=== PATIENT | female | born 1980 | race Caucasian/White ===

== ENCOUNTER 2018-05-01 19:48 | Emergency (ER) | payer MEDICAID ==
[~2018-05-01] VITALS: Ht 172.7 cm; Wt 61.7 kg
--- NOTE | 2018-05-01 20:00 | NUR ---
PT BIBRA BECAUSE HER SISTER THOUGHT SHE WAS "ACTING WEIRD". SISTER STATES THAT SHE HAS BEEN ACTING SUICIDAL, AND SAYING SHE WANTS TO KILL HERSELF. PT DENIES SI/HI AT THIS MOMENT. PT RESPIRATIONS EVEN AND UNLABORED. PT PUT ON THE SAMPLE TESTER GRINDER AND PULSE OX.
--- NOTE | 2018-05-01 20:09 | NUR ---
SISTER. NISREEN: [phone]. CALL FOR QUESTION.
--- NOTE | 2018-05-01 22:00 | NUR ---
PT WANTING TO LEAVE, NON-COOPERATING WITH STAFF. PT STATING "I WANT MY PHONE AND I NEED TO GET OUT OF HERE"
[2018-05-01 22:28] LABS: APPEARANCE,URINE Clear (CLEAR); BILIRUBIN,URINE Negative (NEGATIVE); BLOOD, URINE Negative Ery/uL (NEGATIVE); COLOR,URINE Yellow (YELLOW); KETONES,URINE Trace (NEGATIVE); LEUKOCYTE ESTERASE ,URINE Negative (NEGATIVE); NITRITE, URINE Negative (NEGATIVE); PROTEIN,URINE Trace mg/dl (NEGATIVE); UGLUCOSE Negative (NEGATIVE); UROBILINOGEN,URINE 0.2 EU/dL (0.2)
[2018-05-01 22:30] LABS: BASOPHILS % (AUTO) 0.3 % (0.0-2.0); EOSINOPHILS % (AUTO) 3.1 % (0.0-6.0); HEMATOCRIT 45 % (33-45); HEMOGLOBIN 15.1 g/dL (11.5-14.8); LYMPHOCYTES % (AUTO) 8.2 % (20.0-44.0); MEAN CORPUSCULAR HGB CONC 34 g/dl (31.0-36.0); MEAN CORPUSCULAR VOLUME 94 fL (82-100); MONOCYTES # (AUTO) 0.8 /CMM (0.1-1.30); MONOCYTES % (AUTO) 6.5 % (2.0-12.0); NEUTROPHILS # (AUTO) 9.8 /CMM (1.8-8.9); NEUTROPHILS % (AUTO) 81.9 % (43.0-81.0); PLATELET COUNT (AUTO) 293 /CMM (150-450); RED BLOOD CELL COUNT(AUTO) 4.79 MIL/uL (4.0-5.2); WHITE BLOOD COUNT (AUTO) 11.9 K/uL (4.3-11.0)
--- NOTE | 2018-05-01 22:30 | NUR ---
Erma olivera in EDM - 05/01/18 at 2353 by YELITZA PT REFUSING BLOOD DRAW, AND URINE SAMPLE. JULIO NORMAN.
[2018-05-01 22:36] LABS: CALCIUM, SERUM 9.5 mg/dL (8.5-10.1); CARBON DIOXIDE 26 mmol/L (21-32); CHLORIDE 108 mmol/L (98-107); CREATININE 0.9 mg/dL (0.6-1.3); GLUCOSE 100 mg/dL (74-106); POTASSIUM 3.9 mmol/L (3.5-5.1); SODIUM SERUM 144 mmol/L (136-145); UREA NITROGEN, BLOOD 11 mg/dL (7-18)
[2018-05-01 22:43] LABS: ACETAMINOPHEN 0 ug/ml (10-30); ALANINE AMINOTRANSFERASE 27 U/L (12-78); ALBUMIN 3.9 g/dL (3.4-5.0); ALCOHOL, BLOOD < 3 mg/dL (0-0); ALKALINE PHOSPHATASE 125 U/L (46-116); ASPARTATE AMINOTRANSFERASE 23 U/L (15-37); BILIRUBIN,TOTAL 0.2 mg/dL (0.2-1.0); SALICYLATE 7.1 mg/dL (2.8-20.0); TOTAL PROTEIN, SERUM 7.6 g/dL (6.4-8.2)
--- NOTE | 2018-05-01 23:06 | NUR ---
CALLED GEORGE [phone] LEFT COG
--- NOTE | 2018-05-02 01:30 | NUR ---
GEORGE FROM PET TEAM AT BEDSIDE FOR EVALUATION
--- NOTE | 2018-05-02 02:03 | NUR ---
PT AAOX4. ABLE TO AMBULATE STEADY GAIT. MEDICALLY CLEARED FOR DISCHARGE BY PET TEAM AND ER MD. INSTRUCTED PT NOT TO DRIVE. PT VERBALIZED UNDERSTANDING, STATES SHE WILL CALL FRIEND TO PICK HER UP. PT PREFERRED TO WAIT IN WAITING ROOM FOR RIDE.
[2018-05-02 02:07] VITALS: BP 134/89
[2018-05-02 05:47] LABS: BACTERIA,URINE Few /HPF (None Seen); RBC,URINE 0-2 /HPF (0-2); SQUAMOUS EPITHELIAL CELL,UR Few /HPF (None Seen)
== END 2018-05-02 02:08 | disposition home or self-care (01) ==
LOC: ER 19:52
DX: F41.9 Anxiety disorder, unspecified (principal); R45.851 Suicidal ideations; Z88.0 Allergy status to penicillin
CPT/HCPCS: 36415; 80048; 80076; 80305; 80307; 80329; 81001; 84702; 85025; 87086; 99284; G0480; 81000-TC